=== PATIENT | female | born 1980 | race Caucasian/White ===

== ENCOUNTER → 2023-12-29 10:11 | Outpatient (BNVA) | payer BC, MEDICAID, SELFPAY | PROVIDERS: Visit Provider Nurse Practitioner | DX: S69.91XA Unspecified injury of right wrist, hand and finger(s), initial encounter (principal); X50.0XXA Overexertion from strenuous movement or load, initial encounter; M25.531 Pain in right wrist | CPT/HCPCS: 73110; 80053; 80061; 85025 ==

== ENCOUNTER 2024-01-03 11:22 | Outpatient (CLI) | payer BC, MEDICAID, SELFPAY ==
--- NOTE | 2024-01-03 11:30 | MM_ITS ---
WS: [id number] BILATERAL SCREENING DIGITAL TOMOSYNTHESIS MAMMOGRAM WITH CAD HISTORY: Z12.39 - Encounter for other screening for malignant neop... COMPARISON: 05/11/2021 Bilateral CC and MLO views with tomosynthesis and synthetic mammography submitted. Computer aided det ection analyzed. Breast composition: There are scattered areas of fibroglandular density. No suspicious masses, microc alcifications or architectural distortion. MM/MM scr BI tomosynthesis [id number] IMPRESSION: BI-RADS: 2 - Benign. FOLLOW UP: 1 Year Follow-up
== END 2024-01-03 11:23 | disposition home or self-care (01) ==
LOC: RAD 11:22
PROVIDERS: Visit Provider Nurse Practitioner
DX: Z12.31 Encounter for screening mammogram for malignant neoplasm of breast (principal); R92.323 Mammographic fibroglandular density, bilateral breasts
CPT/HCPCS: 77063; 77067

== ENCOUNTER → 2024-02-01 15:18 | Outpatient (BNVA) | payer BC, MEDICAID, SELFPAY | PROVIDERS: Visit Provider Emergency Medicine | DX: S79.912A Unspecified injury of left hip, initial encounter (principal); M25.852 Other specified joint disorders, left hip; M79.18 Myalgia, other site; Y29.XXXA Contact with blunt object, undetermined intent, initial encounter | CPT/HCPCS: 72170 ==

== ENCOUNTER → 2024-02-21 15:36 | Outpatient (BNVA) | payer BC, SELFPAY | PROVIDERS: Referring Provider Nurse Practitioner; Visit Provider Internal Medicine Cardiovascular Disease | DX: R94.31 Abnormal electrocardiogram [ECG] [EKG] (principal); R07.9 Chest pain, unspecified | CPT/HCPCS: 93005 ==

== ENCOUNTER → 2024-09-17 09:58 | Outpatient (BNVA) | payer MEDICAID, SELFPAY | PROVIDERS: PCP Nurse Practitioner; Visit Provider Nurse Practitioner | DX: N39.0 Urinary tract infection, site not specified (principal); R11.0 Nausea | CPT/HCPCS: 81000; 84702; 87086 ==

== ENCOUNTER → 2024-09-27 15:28 | Outpatient (BNVA) | payer MEDICAID, SELFPAY | PROVIDERS: PCP Nurse Practitioner; Visit Provider Nurse Practitioner | DX: R53.83 Other fatigue (principal) | CPT/HCPCS: 80053; 83001; 83002; 84443; 85025 ==

== ENCOUNTER → 2024-10-02 13:31 | Outpatient (BNVA) | payer MEDICAID, SELFPAY | PROVIDERS: PCP Nurse Practitioner; Visit Provider Nurse Practitioner | DX: N91.2 Amenorrhea, unspecified (principal) | CPT/HCPCS: 84702 ==

== ENCOUNTER → 2024-11-07 14:30 | Outpatient (BNVA) | payer MEDICAID, SELFPAY | PROVIDERS: PCP Nurse Practitioner; Visit Provider Obstetrics & Gynecology | DX: N91.0 Primary amenorrhea (principal); N85.2 Hypertrophy of uterus; N83.201 Unspecified ovarian cyst, right side | CPT/HCPCS: 76830 ==

== ENCOUNTER → 2024-11-19 14:10 | Outpatient (BNVA) | payer MEDICAID, SELFPAY | PROVIDERS: PCP Nurse Practitioner; Visit Provider Obstetrics & Gynecology | DX: R93.89 Abnormal findings on diagnostic imaging of other specified body structures (principal) | CPT/HCPCS: 88305 ==

== ENCOUNTER 2025-02-12 10:31 | Outpatient (CLI) | payer MEDICAID, SELFPAY ==
--- NOTE | 2025-02-12 10:40 | MM_ITS ---
WS: [id number] BILATERAL 3D TOMOSYNTHESIS DIGITAL SCREENING MAMMOGRAPHY WITH CAD CLINICAL INFORMATION: Z12.39 - Encounter for other screening for malignant neop... HISTORY: Screening mammogram. No current complaints. COMPARISON: 2023 TECHNIQUE: Bilateral CC and MLO views. FINDINGS: Scattered fibroglandular densities bilaterally. No suspicious focal mass, asymmetry, calcifications, or architectural distortion. No evidence of malignancy. MM/MM scr BI tomosynthesis [id number] IMPRESSION: DENSITY: There are scattered areas of fibroglandular density. BI-RADS: 1 - Negative. FOLLOW UP: 1 Year Follow-up Recommend return to annual screening mammography.
== END 2025-02-12 10:32 | disposition home or self-care (01) ==
LOC: MOBLMAM 10:33
PROVIDERS: PCP Nurse Practitioner; Visit Provider Nurse Practitioner
DX: Z12.31 Encounter for screening mammogram for malignant neoplasm of breast (principal); R92.323 Mammographic fibroglandular density, bilateral breasts
CPT/HCPCS: 77063; 77067

== ENCOUNTER → 2025-02-21 11:03 | Outpatient (BNVA) | payer MEDICAID, SELFPAY | PROVIDERS: PCP Nurse Practitioner; Visit Provider Nurse Practitioner | DX: K92.1 Melena (principal) | CPT/HCPCS: 85025 ==

== ENCOUNTER 2025-03-05 07:26 | Day surgery (SDC) | payer MEDICAID, SELFPAY ==
[2025-03-05 07:39] VITALS: BP 153/78; PULSE 84; RESP 16; TEMP 36.1; O2SAT 97; BMI 34.4
[2025-03-05 07:44] LABS: OR HCG Qualitative Urine Negative (Negative)
--- NOTE | 2025-03-05 07:49 | ANES.PREANE2 ---
Pre-Anesthetic Assessment Height/Weight: Height 1.57 m Weight 85.275 kg Temp Pulse Resp BP Pulse Ox O2 Del Method 97.0 F L 84 16 153/78 97 Room Air 03/05/25 07:39 03/05/25 07:39 03/05/25 07:39 03/05/25 07:39 03/05/25 07:39 03/05/25 07:39 Operation Date: 03/05/25 09:00 Proposed Procedures p EGD EGD with Biopsy 47282 K21.9(Not Applicable) - Eloy Silva MD Familial anesthetic complications: None Was Beta Patricia taken within 24 hours: N/A Was Clonidine taken within 24 hours: N/A Last intake: Intake Last Liquid Date 03/04/25 Last Liquid Time 21:00 Last Solid Date 03/04/25 Last Solid Time 19:00 Social No alcohol and No tobacco Exam alert, oriented x 3, clear to auscultation bilaterally and regular rate & rhythm Airway Mallampati: Class III Dentition: full CV/HEM Arrythmia (Hx SVT) Anesthetic Plan ASA status: 2 Anesthesia: MAC Risk of > 500 ml blood loss (7ml/kg in children): No Medications/Allergies Home Medications ?Medication ?Instructions ?Recorded ?Confirmed ?Last Taken ?Type mupirocin 2 % topical ointment 1 applic topical BID 7 days #22 09/17/24 03/05/25 02/28/25 Rx (Centany) grams ibuprofen 800 mg tablet 800 mg PO Q8H PRN pain #90 tabs 01/23/25 03/05/25 Unknown Rx pantoprazole 40 mg tablet,delayed 40 mg PO DAILY #30 tabs 02/27/25 03/05/25 03/04/25 Rx release (Protonix) escitalopram oxalate 20 mg tablet 20 mg PO DAILY 02/28/25 03/05/25 02/25/25 History (Lexapro) Allergies Allergy/AdvReac Type Severity Reaction Status Date / Time Penicillins Allergy Intermediate ALGY-Rash Verified 03/05/25 07:38 [facility] Anesthesia Medical History (Updated 02/25/25 @ 11:31 by Eloy Silva MD) Perimenopausal vasomotor symptoms History of ovarian cyst History of irregular menstrual cycles Family History Grandmother Cancer maternal- ovarian Diabetes maternal Ovarian cancer Grandfather Cancer maternal- sinus cancer Father Cancer Pancreatic cancer Diabetes Mother Diabetes Thyroid disease Denies family history of Heart disease Chronic kidney disease (CKD) Stroke Social History Smoking and tobacco/nicotine status: never used tobacco/nicotine Female Reproductive History Para: 3 Spontaneous abortions: No
--- NOTE | 2025-03-05 08:12 | W.PM.OPSUD ---
Surgery/Procedure H&P Update DATE OF PROCEDURE: March 05, 2025 DATE H&P PERFORMED: 02/25/25 H&P UPDATE INFORMATION: I have reviewed H&P completed within last 30 days, I have examined patient prior to procedure, No changes to prior documentation and Risks and benefits of the procedure reviewed PLANNED PROCEDURE: Operation Date: 03/05/25 09:00 Proposed Procedures p EGD EGD with Biopsy 79753 K21.9(Not Applicable) - Eloy Silva MD
[2025-03-05 08:28] VITALS: BP 102/60; PULSE 90; RESP 14; TEMP 36.4; O2SAT 94
[2025-03-05 08:50] VITALS: BP 111/70; PULSE 90; RESP 16; O2SAT 98
--- NOTE | 2025-03-05 08:50 | ANE.PACU2 ---
Inpatient post-anesthesia follow up: Airway intact: Yes Vital signs: Temperature 97.5 F Pulse Rate 90 Respiratory Rate 16 Blood Pressure 111/70 Pulse Oximetry 98 Oxygen Delivery Me thod Room Air Oxygen Flow Rate Fraction of Inspir ed Oxygen Hydration adequate: Yes Nausea and vomiting: No Pain level: 1 Mental status: Baseline
== END 2025-03-05 08:57 | disposition home or self-care (01) ==
PROVIDERS: Anesthesiology; PCP Nurse Practitioner; Visit Provider Student in an Organized Health Care Education/Training Program
PROC: 0DJ08ZZ Inspection of Upper Intestinal Tract, Via Natural or Artificial Opening Endoscopic (ICD-10-PCS; principal; 2025-03-05 09:00)
DX: R12 Heartburn (principal); K92.1 Melena; K44.9 Diaphragmatic hernia without obstruction or gangrene; K29.70 Gastritis, unspecified, without bleeding; I49.9 Cardiac arrhythmia, unspecified; K21.9 Gastro-esophageal reflux disease without esophagitis; Z80.41 Family history of malignant neoplasm of ovary; Z80.8 Family history of malignant neoplasm of other organs or systems
CPT/HCPCS: 43239; 81025; 88305; J2704; J7030; J9999